=== PATIENT | female | born 1960 | race Caucasian/White ===

== ENCOUNTER 2021-05-20 08:39 | Outpatient (RCR) | payer OTHER, SELFPAY ==
[2021-05-20] MEDS: diphenhydrAMINE HCl CAP 25 MG CAPSULE PO (09:46)
[2021-05-20] MEDS: FAMOTIDINE 20 MG TABLET PO (09:46)
[2021-05-20] MEDS: ACETAMINOPHEN 325 MG TABLET 650 MG PO (09:47)
[2021-05-20 09:51] VITALS: BP 157/85; PULSE 84; TEMP 36.6; O2SAT 100
[2021-05-20 10:48] VITALS: BP 165/85; PULSE 82; O2SAT 100
--- NOTE | 2021-05-20 10:54 | PC.NURSE ---
Patient with a slight flushing and with slight dizziness. Vital signs are stable. Patient states that symptoms are improving.
[2021-05-20 11:24] VITALS: BP 168/78; PULSE 70; O2SAT 100
--- NOTE | 2021-05-20 11:39 | PC.NURSE ---
Patient no longer dizzy or with numbness or tingling at discharge.
== END 2021-05-20 17:00 ==
LOC: AMCINF 08:39
PROVIDERS: PCP Physician Assistant Medical; Referring Provider Physician Assistant Medical; Visit Provider Internal Medicine Hematology & Oncology
DX: U07.1 COVID-19 (principal); I10 Essential (primary) hypertension; J44.9 Chronic obstructive pulmonary disease, unspecified
CPT/HCPCS: A9270; M0247; Q0247

== ENCOUNTER 2021-11-14 10:30 | Outpatient (CLI) | payer OTHER, SELFPAY ==
--- NOTE | 2021-11-14 10:37 | ECG_ITS ---
Measurements Intervals Dunlap Rate: 71 P: 61 IN: 180 QRS: 24 QRSD: 94 T: 27 QT: 364 QTc: 396 Interpretive Statements SINUS RHYTHM POSSIBLE LEFT ATRIAL ENLARGEMENT BASELINE ARTIFACT- I, II, III, AVR, AVL, AVF, V4-V6 BORDERLINE ECG Electronically Signed On 11-14-2021 16:43:44 CDT by Hoang Mcdaniel D.O.
[2021-11-14 11:05] LABS: Alanine Aminotransferase 17 U/L (6-35); Albumin Level 4.5 g/dL (3.5-5.1); Alkaline Phosphatase 82 U/L (38-126); Amylase 65 U/L (30-110); Aspartate Amino Transferase 22 U/L (14-36); Bilirubin,Total 0.4 mg/dL (0.2-1.3); Lipase 55 U/L (23-300)
== END 2021-11-14 10:31 | disposition home or self-care (01) ==
PROVIDERS: PCP Physician Assistant Medical; Visit Provider Surgery
DX: Z01.818 Encounter for other preprocedural examination (principal); K81.1 Chronic cholecystitis
CPT/HCPCS: 36415; 80076; 82150; 83690; 86850; 86900; 86901; 93005

== ENCOUNTER 2021-11-17 01:53 | Day surgery (SDC) | payer OTHER, SELFPAY ==
[2021-11-12 15:40] VITALS: BMI 28.8
--- NOTE | 2021-11-12 15:50 | PC.NURSE ---
Report to the Outpatient Waiting Room, entrance under the green pavilion located off [facility], at time 6:00 on date 11/17/21. OR Time: 7:30. - You and your visitor will be asked a series of questions to screen for COVID 19 for your protection. - Only one visitor is allowed at this time. - The patient visitor is requested to leave or wait in car when not with patient. - A mask is required within the hospital. Patients may have clear liquids (water, carbonated beverages, clear teas, apple juice) until 3 hours prior to surgery (4:30) with a maximum of 20 ounces. - No food from midnight until time of surgery Take the following medications with a SIP of water the morning of surgery: XANAX (IF NEEDED) Medications to discontinue per physician: VITAMINS/SUPPLEMENTS Date to take last dose: 11/13/21 Please no make-up, nail maltese, hairspray, perfume, deodorant, or body powder the day of surgery. No jewelry (including any body piercings) or valuables the day of surgery, leave them at home. Please take a shower or bath the night before, or the morning of, surgery with an antibacterial soap. Wear comfortable, loose fitting clothing. HIBICLENS SHOWER - Jewelry must be removed prior to entering the operating room. Rings and piercings that are not removed may be cut off. - The hospital will not accept responsibility for valuables. - Please leave all valuables, including medications, at home the day of surgery. If you are going home after surgery, a licensed laborer driver must drive you home. - NO public transportation without another adult. - We recommend that an adult stay with you for 24 hours following discharge. - We also recommend that you do not drive, make important decision, drink alcoholic beverages, or take any drugs that were not prescribed by your health care provider for at least 24 hours after your discharge time. Follow any additional instructions given to you from your surgeon. If you or anyone in your household have experienced Covid symptoms in the past week, please notify your surgeon or the nurse liaison at the phone number below for possible testing. Telephone instructions given to PT - NEISHA STANTON and asked if any additional questions and then verbalized understanding. Patient advised to call surgeon office or pre surgery nurse liaison [phone] if any additional questions.
[2021-11-17] VITALS (10 sets, daily range): BP systolic 103–161; BP diastolic 60–87; PULSE 64–84; RESP 10–18; TEMP 36.4; O2SAT 94–100
[2021-11-17] MEDS: ACETAMINOPHEN 500 MG TABLET 1000 MG PO (06:16)
[2021-11-17] MEDS: KETOROLAC 15 MG/ML VIAL (*BKC) IV PUSH (06:29)
--- NOTE | 2021-11-17 06:48 | P.PNAN_ITS ---
Anes - Initial Pre Proc Eval Procedure: Operation Date: 11/17/21 07:30 Proposed Procedures p Laparoscopic Cholecystectomy - Dorothy Mahajan MD Date/Time: 11/17/21 06:48 Surgeon: Dorothy Mahajan MD Pre Op Diagnosis: chronic cholecystitis Patient Data Age: 61 Gender: F Height: 1.75 m Weight: 88.6 kg Allergies Allergy/AdvReac Type Severity Reaction Status Date / Time shellfish derived Allergy Anaphylaxis Verified 11/17/21 06:05 Home Medications Medication Instructions Recorded Confirmed Type alprazolam 0.25 mg tablet 0.25 mg PO DAILY PRN Anxiety 11/12/21 11/17/21 History amitriptyline 50 mg tablet 50 mg PO HS 11/12/21 11/17/21 History cholecalciferol (vitamin D3) 125 125 mcg PO DAILY 11/12/21 11/17/21 History mcg (5,000 unit) tablet (Vitamin D3) multivitamin 1 tablet PO DAILY 11/12/21 11/17/21 History Patient hx anesthesia problems: none Family hx anesthesia problems: none Results Review: All pre-operative results and documents have been reviewed as part of the pre- operative evaluation. [facility] Past Medical History Medical History Ectopic Kidney stones Surgical History Surgical History Delivery by section H/O hemorrhoidectomy H/O shoulder surgery Social History Social History Smoking packs per day: 0.5 Smoking cigarettes per day: 10.0 Years smoked: 42 Smoking pack-years: 21.00 Smoking status: Current every day smoker Tobacco type: cigarettes Alcohol intake: never Substance use: never Substance use type: does not use Living arrangements: with family Spiritual care concerns: No Anes - Eval Final PreProcedure Day of Procedure 11/17/21 06:48 Patient weight: overweight Heart: regular rate and rhythm Lungs: clear to auscultation Airway: Mallampati scale class II Neurological: alert and oriented Last oral intake: >/= 8 hours ASA classification: II Emergent: no Anesthetic plan: proceed Anesthesia type and monitoring: general ETT and standard monitoring Results Review: All pre-operative results and documents have been reviewed as part of the pre- operative evaluation. Informed Consent: The patient's anesthetic plan and its attendant risks and benefits were discussed with the patient/family/POA. Questions were solicited and answers provided to the satisfaction of the patient/family/POA.
[2021-11-17] MEDS: LACTATED RINGERS 1,000 ML 30 ML IV CONT ×2 (07:11→08:17)
[2021-11-17] MEDS: ceFAZolin 2 GM/D5W 50 ML 2 GM/50 ML BAG IVPB (07:23)
--- NOTE | 2021-11-17 07:27 | WPDHPUPDATE1 ---
History and Physical Update Update Date/Time: 11/17/21 07:27 History and Physical has been reviewed, including an updated exam of the patient. There are NO changes in the patient's condition. Risks, benefits, and alternatives have been discussed and questions answered. Patient agrees to proceed with procedure.
[2021-11-17] MEDS: BUPIVACAINE/EPINEPHRINE 0.25% 50 ML VIAL 30 ML INFILTRATE (07:28)
--- NOTE | 2021-11-17 08:07 | W.PM.PROC2 ---
Procedure Note - Detailed Date of Procedure 11/17/21 Pre-op Diagnosis chronic cholecystitis Post-op Diagnosis Same Procedure Performed Laparoscopic cholecystectomy Surgeon Dorothy Mahajan MD Anesthesia General Indications 61-year-old female presented to the office complaining of postprandial right upper quadrant abdominal pain associated with nausea and vomiting. Workup including imaging significant for chronic cholecystitis. Findings chronic cholecystitis Description of Procedure The patient was taken to the operating room placed in the supine position. After adequate induction of general anesthesia, the patient was prepped and draped in normal sterile fashion. A time-out was then performed to verify the patient's identity as well as the procedure being performed. I then made a 5 mm incision in the infraumbilical region. Through this, a Veress needle was placed into the peritoneal cavity and CO2 gas was then insufflated. After adequate pneumoperitoneum was achieved, the Veress needle was removed and a 5 mm optiview trocar was placed through this incision under direct visualization. I then placed the laparoscope through this trocar site and under direct visualization placed a further 12 mm subxiphoid port as well as 2 additional 5 mm ports in the right upper abdomen. There was some adhesions noted in the midline and these were taken down to help with visualization. The gallbladder was then identified and was noted to be moderately inflamed, distended. I was able to place a grasper at the dome of the gallbladder and this was retracted anterior and cephalad up over the liver. A 2nd retractor was then placed at the infundibulum and retracted laterally, this allowed visualization of the triangle of Calot. I then was able to visualize the cystic duct in its entirety from its proximal insertion into the gallbladder, to its distal junction with the common hepatic/common bile duct junction. At this point, I carefully skeletonized the proximal cystic duct with the [place] dissector. I then clipped and transected the proximal cystic duct. Next I visualized the cystic artery. Again the artery was skeletonized, clipped, and transected. I then used the Bovie cautery to take down the peritoneal attachments of the gallbladder off the liver bed. Once the gallbladder specimen was completely detached, an endo-pouch was placed through the 12 mm port site. I then placed the gallbladder specimen into the Endo pouch and removed the endo-pouch from the 12 mm port site. The specimen will now be sent to pathology for further review. I then copiously irrigated the right upper quadrant. Some mild oozing was noted in the liver bed and this was controlled with the bovie cautery. Hemostasis was noted in the liver bed, the clips were noted to be in good position on both the cystic duct stump and the cystic artery stump. No other pathology was noted in the right upper quadrant. I then moved the laparoscope to the subxiphoid port. No iatrogenic injury or other pathology was noted in the lower abdomen. I then closed the 12 mm trocar site under direct visualization using the Prasanna cone and 0 Vicryl suture. At this point, the abdomen was desufflated and all ports removed. All port sites were then closed with 4.O Monocryl subcuticular sutures. Dermabond was placed on each incision. The patient tolerated the procedure well, was extubated in the operating room postoperative and will be transferred to the recovery room in stable condition Estimated Blood Loss 5 Drains No Packing No Pathology Yes Complications No immediate complications Condition Stable Disposition PACU [facility] Billing Surgery - Charge Forward: Surgery Billing
[2021-11-17] MEDS: ONDANSETRON INJ 4 MG/2 ML VIAL IV PUSH (08:34)
[2021-11-17] MEDS: fentaNYL CITRATE INJ (*CRX) 100 MCG/2 ML VIAL 25 MCG IV PUSH ×4 (08:37→08:48)
[2021-11-17] MEDS: oxyCODONE HCL (*CRX) 5 MG TAB IR PO (09:46)
== END 2021-11-17 10:46 | disposition home or self-care (01) ==
PROVIDERS: PCP Physician Assistant Medical; Visit Provider Surgery
PROC: 0FT44ZZ Resection of Gallbladder, Percutaneous Endoscopic Approach (ICD-10-PCS; CPT 47562; principal; 2021-11-17 07:30)
DX: K81.1 Chronic cholecystitis (principal); F17.210 Nicotine dependence, cigarettes, uncomplicated
CPT/HCPCS: 47562; 36415; 80076; 82150; 83690; 86850; 86900; 86901; 88304; 93005; A9270; J0690; J1100; J1885; J2250; J2370; J2405; J2704; J2710; J3010; J7030; J7120

== ENCOUNTER → 2022-07-31 09:13 | Outpatient (CLI) | payer OTHER, SELFPAY ==
--- NOTE | ~2022-07-31 | CT_ITS ---
EXAMINATION: CT abdomen pelvis w con DATE: 07/31/2022 09:47 INDICATION: Left upper quadrant abdominal pain. TECHNIQUE: Computed tomography (CT) of the abdomen and pelvis was performed with 100 mL Omnipaque 350 intravenous contrast. Automated exposure control and iterative reconstruction technique were employe d. The dose-length product was 874.40 mGy-cm. COMPARISON: None. FINDINGS: The visualized portions of the lung bases demonstrate mild atelectasis. A calcified right l salazar nodule is consistent with old granulomatous disease. No pleural effusion. The heart size is rayne l. No pericardial effusion. The liver is normal. Calcifications in the spleen are consistent with old granulomatous disease. There are changes of cholecystectomy. The pancreas, adrenal glands, and kidne ys are normal. There is diverticulosis of the colon without evidence of diverticulitis. There are no dilated loops of bowel. The appendix is normal. There are no pathologically enlarged lymph nodes. The re is no free intraperitoneal fluid. There is moderate thoracic and lumbar spondylosis. IMPRESSION: 1. No etiology for the patient's symptoms. Reviewed, dictated and finalized at location A.
== END ==
PROVIDERS: PCP Physician Assistant Medical; Visit Provider Physician Assistant Medical
DX: R10.12 Left upper quadrant pain (principal)
CPT/HCPCS: 74177; Q9967